=== PATIENT | female | born 1980 | race Caucasian/White ===

== ENCOUNTER → 2018-03-14 07:15 | Outpatient (CLI) | payer OTHER, SELFPAY ==
[2018-03-17 12:56] LABS: HPV Reflexed? NOT INDICATED
== END ==
PROVIDERS: Visit Provider Obstetrics & Gynecology
DX: Z12.4 Encounter for screening for malignant neoplasm of cervix (principal)
CPT/HCPCS: 88175; G0145

== ENCOUNTER → 2020-08-29 12:30 | Outpatient (CLI) | payer OTHER, SELFPAY ==
--- NOTE | 2020-08-29 11:45 | EMB_PTH ---
PATIENT: VARINDER FREEMAN LOC: [facility] U#:[id number] AGE/SX: 45/F ROOM: RE08/29/[address]: Dr. Jazlyn Shahid DO : 1980 BED: DIS: SPEC #: [id number] RECD: 08/29/20 15:41 STATUS: FOSTER CHAITANYA #: [id number] RENARD: 08/29/20 11:[address]: Jazlyn Shahid DEPT: SURGICAL PATHOLOGY RECD BY: Reece Rojas ENTERED: 08/30/20 07:31 SP TYPE: ENDOM BX/C RYAN DR: Dr. Randolph Phillips MD Tissues: Endometrium, NOS Procedures: Surgery Specimen Level IV HEADER OPERATION: Endometrial biopsy PRE-OP DIAGNOSIS: Heavy menses, thickened endometrium TISSUE SUBMITTED: Endometrial biopsy MICROSCOPIC DIAGNOSIS Endometrium, biopsy: Secretory endometrium. AM:tavia 09/02/20 MICROSCOPIC DESCRIPTION Slides are reviewed. GROSS DESCRIPTION Received in fixative is one container labeled with the patient's name and designated EMB. The specimen consists of multiple irregular fragments of dumont-pink soft tissue that in aggregate measure 2.5 x 1 x 0.1 cm. The specimen is totally submitted in one cassette. / SJ:tavia 08/30/20 TC:5 CPT: 12877
--- NOTE | 2020-08-29 12:33 | BI_ITS ---
MAMMOGRAPHY - BILATERAL SCREENING REASON FOR EXAM: Female, 40 years old. Routine annual screening examination. PERTINENT HISTORY: Non-contributory. TECHNIQUE: Digital bilateral breast aruna (3D mammographic acquisition) in the CC and MLO projections. 2-D mediolateral oblique (MLO) and craniocaudad (CC) views of both breasts were obtained. CAD: Full Field Digital Mammography with Computer Added Detection was performed. COMPARISON: None. Baseline examination. FINDINGS: Breast Composition: There are scattered areas of fibroglandular density. There are no dominant masses or suspicious calcifications. The left breast is smaller than the right breast. Benign appearing bilateral axillary lymph nodes. No other significant abnormalities are identified. BI/SCREEN MAMM (CAD) W/ARUNA BILAT IMPRESSION: Negative screening mammogram. Yearly followup mammogram recommended. (A) ASSESSMENT CATEGORY: BIRADS Category 2: Benign. A letter regarding these results will be sent to the patient by the facility within 30 days. Approximately 10% of breast cancers are not detected by mammography. A normal mammogram should not delay biopsy of a clinically suspicious abnormality. [id number] Electronically Signed: Colby Mederos, at 12:33 EDT , Service support ,
== END ==
PROVIDERS: PCP Family Medicine; Referring Provider Student in an Organized Health Care Education/Training Program; Visit Provider Student in an Organized Health Care Education/Training Program
DX: Z12.31 Encounter for screening mammogram for malignant neoplasm of breast (principal); N92.0 Excessive and frequent menstruation with regular cycle; R93.89 Abnormal findings on diagnostic imaging of other specified body structures
CPT/HCPCS: 77063; 77067; 88305

== ENCOUNTER 2020-10-24 10:25 | Day surgery (SDC) | payer OTHER, SELFPAY ==
[2020-10-21 12:19] LABS: Hematocrit 39.3 % (37-47); Hemoglobin 13.2 g/dL (12.0-15.0); Mean Corp Hgb Conc 33.6 g/dL (32-36); Mean Corpuscular Hgb 30.2 pg (27.0-32.0); Mean Corpuscular Volume 89.9 fL (81-99); Mean Platelet Vol. 10.1 fl (6.2-12.0); Platelet Count 302 K/mm3 (150-450); RBC Distribution Width CV 12.6 % (11.6-14.6); RBC Distribution Width SD 41.5 fl (35.1-43.9); Red Blood Count 4.37 M/mm3 (4.2-5.4); White Blood Count 9.4 K/mm3 (4.4-11.0)
--- NOTE | 2020-10-22 15:59 | EKG12_ITS ---
Test Reason : PRE OP Blood Pressure : / mmHG Vent. Rate : 082 BPM Atrial Rate : 082 BPM P-R Int : 128 ms QRS Dur : 090 ms QT Int : 374 ms P-R-T Axes : 043 047 038 degrees QTc Int : 436 ms Normal sinus rhythm Normal ECG Confirmed by HEMANTH LR, ALISON ([id number]), book editor ERNESTO PHIPPS ([id number]) on 10/23/2020 9:44:32 AM Referred By: Jazlyn Shahid Confirmed By:ALISON SAXENA MD
--- NOTE | 2020-10-23 17:22 | HP.PCM_ITS ---
History and Physical Date of Admission: 10/24/20 Maria Fernanda Cortez, a 40 year old female 2 0 0 0 2, presents for Hystero scopy, D, Ablation on October 24, 2020 at 12:00. Monthly menses are heavy first few days with associated pain and cramping. Pamphlet given for mammogram and order faxed to [facility]. Heavy, very crampy/p ainful, regular periods occurring q 3 wks; associated larger than egg sized clots. LMP 08/10/20. This period bled thru pads and in a puddle in her bed. On no ocp. had a vasectomy. Patient had an ultrasound and endometrial biopsy which was benign. MEDICATIONS HISTORY: none ALLERGIES: NKA and No Known Drug Allergies MEDICAL HISTORY: Reports irregular heart rhythm after being exposed to red dyes and caffeine. Has not happened in a while. SOCIAL HISTORY: Alcohol Use - drinks occasionally Smoking - denies smoking FAMILY HISTORY: Paternal history of DM II. Mother: Hypertension. Paternal Grandmother: Lung cancer. MENSTRUAL HISTORY: LMP Known?- DefiniteAmount/Duration - 6-7 DAYS, Regularity - Regular, Frequency - monthly days, LMP - 10/02/20, Age Onset Menarche - 14 PAST PREGNANCIES: Total Pregnancies - 2; Full Term Pregnancies - 2; Premature - 0; Abortions, Induced - 0; Abortions, Spontaneous - 0; Ectopics - 0; Multiple Births - 0; Living Children - 2 SURGICAL HISTORY: 1. 04/23/2015 dermatological ; Dr Anderson - 2. wisdom teeth 05-21-08 ; - Review of Systems: GENERAL - Denies fever, or chills SKIN - Denies skin changes EYES - Denies visual changes EARS - Denies difficulty hearing NOSE - Denies nasal congestion or bleeding MOUTH - Denies sore throat or difficulty swallowing NECK - Denies pain or swelling RESPIRATORY - Denies shortness of breath or wheezing CARDIOVASCULAR - Denies palpitations or chest pain GASTROINTESTINAL - Denies nausea, vomiting, diarrhea, constipation GENITOURINARY - heavy periods MUSCULOSKELETAL - Denies joint or muscle pain NEUROLOGICAL - Denies localized numbness or weakness PSYCHIATRIC - Denies depression or anxiety ENDOCRINE - Denies heat or cold intolerance, weight loss or gain HEMATO-IMMUNOLOGIC - Denies excesive bleeding with cuts PHYSICAL EXAM BP- 156/100 Sitting, Right arm, regular cuff Weight- 198.81088 lbs Height- 66.5 inch BMI:31.55 CONSTITUTIONAL - NAD, well nourished, and well developed SKIN - No rash, lesions, or ulcers HEENT - Normocephalic, PERRLA, EOMI NECK - No nodes, no nuchal rigidity and thyroid normal size and texture LYMPH NODES - Palpation of lymph nodes in neck and groins within normal limits LUNGS - CTA x2 without wheezes, crackles or rales CARDIAC - Regular rate and rhythm without rubs, murmurs, or gallops ABDOMEN - Without hepatosplenomegaly, distention, masses, rebound, or guarding; normal bowel sounds; no hernias EXTREMITIES - No edema or calf tenderness NEUROLOGICAL - Cranial nerves II-XII grossly intact PSYCHIATRIC - A and O to time, place, person, mood and affect External Genitial Vagina - non-tender without lesions Urethra/Urethral Meatus - non-tender Bladder - non-tender Vagina - vaginal mcmillan are pink and moist without loss of rugae and no evidence of atropy Cervix - without cervical motion tenderness and has normal size and features without evident lesions Uterus - 5-6 cm in size, mobile and nontender Adnexa - clear without massess or tenderness ASSESSMENT/PLAN: 1. Excessive And Frequent Menstruation With Regular Cycle Heavy menses, interfering with daily life. US wnl, EMB benign Hx of irregular HR and syncope with ingestion of red dye and caffiene, last episode a while ago. Never saw cardio. Recommend this in future. HR RRR today. Discussed options for management. Pt would like ablation. Discussed R/B/A of ablation. Her has had a vasectomy. Will plan for surgical management.
[2020-10-24] VITALS (9 sets, daily range): BP systolic 100–134; BP diastolic 71–79; PULSE 56–80; RESP 14–18; TEMP 36.9–37.4; O2SAT 96–100; BMI 31.8
[2020-10-24 11:05] LABS: Internal QC Validated? YES +Cl - CLEAR BKGD; Pregnancy, Urine Negative Negative
[2020-10-24] MEDS: Lactated Ringers 1,000 ML 100 ML IV (11:19)
--- NOTE | 2020-10-24 12:00 | EMB_PTH ---
PATIENT: VARINDER FREEMAN LOC: [facility] [place] U#:[id number] AGE/SX: 40/F ROOM: RE10/24/[address]: Dr. Jazlyn Shahid DO : 1980 BED: DIS: 10/24/2020 SPEC #: [id number] RECD: 10/24/20 13:57 STATUS: FOSTER CHAITANYA #: [id number] RENARD: 10/24/20 12:[address]: Jazlyn Shahid DEPT: SURGICAL PATHOLOGY RECD BY: Gwen Shoemaker ENTERED: 10/25/20 07:40 SP TYPE: ENDOM BX/C RYAN DR: Dr. Randolph Phillips MD Tissues: Endometrium, NOS Procedures: Surgery Specimen Level IV HEADER OPERATION: Hysteroscopy, D & C Damaris PRE-OP DIAGNOSIS: Excessive and frequent menstruation TISSUE SUBMITTED: Endometrial curettings MICROSCOPIC DIAGNOSIS Endometrium, curettings: Secretory endometrium. AM:tavia 12/7/20 MICROSCOPIC DESCRIPTION Slides are reviewed. GROSS DESCRIPTION Received in fixative is one container labeled with the patient's name and designated endometrial curettings. The specimen consists of multiple irregular fragments of light dumont soft tissue that in aggregate measure 2 x 2 x 0.2 cm. The specimen is totally submitted in one cassette. / AM:tavia 10/25/20 TC:5 CPT: 73126
--- NOTE | 2020-10-24 12:14 | DCINST_ITS ---
Discharge Activity: Return to Normal Activity May resume sexual activity in: 4 weeks, 6 weeks Weight Bearing Status: Weight bearing as tolerated Call your doctor if your incision/area has: Continuous Slow Oozing Call your doctor if you observe: Fever of 101 or Higher, Inability to have a bowel movement, Using more than one pad per hour Allergies/Adverse Reactions: Allergies No Known Allergies Allergy (Verified 10/24/20 10:52) Medications to take at Discharge Albuterol IH (ProAir) [Proair Hfa (SP)Vent Pts] 1 - 2 puff INHALATION Q4H PRN PRN 10/16/20 L.acidoph,Paracasei, B.lactis [Probiotic] 1 ea PO DAILY 10/16/20 Multivitamin [Multiple Vitamins] 1 ea PO DAILY 10/16/20 Vitamin D3/Vitamin K2 (Mk4) [K2 Plus D3 Tablet] 1 ea PO QHS 10/16/20 Primary Care Physician: Randolph Phillips MD [Primary Care Provider] - Test Results: Test results from this visit will be discussed in further detail at your follow- up appointment, if applicable. Please Follow Up With: Jazlyn Shahid DO When: 2 weeks
--- NOTE | 2020-10-24 12:15 | PCM.OPRPT ---
Report of Operation Date of Procedure: 10/24/20 Pre-Operative Diagnosis: Menorrhagia Post-Operative Diagnosis: Menorrhagia Surgery/Procedure Performed:: Hysteroscopy, dilation and curettage, ablation Description of Surgical Findings:: Normal-appearing external genitalia. Minimal uterine descensus. Uterine cavity sounded to 10 cm, cervical length 5 cm. Normal-appearing endometrial cavity, bilateral tubal ostia noted. Type of Anesthesia:: Local Specimen's removed: Endometrial curettings Estimated Blood Loss (mL): 5cc Fluids Replaced: 800cc Description of Procedure: Patient taken to the operating room, MAC anesthesia initiated. Patient placed in the dorsal lithotomy position and prepped and draped in the usual sterile fashion. Bladder drained approximately 300 cc of clear urine. Weighted speculum placed in the posterior vagina and a Peter retractor utilized to visualize the cervix, anterior lip of the cervix grasped with a single-tooth tenaculum. Cervix sequentially dilated, uterus sounded to 10 cm. Hysteroscope utilized to visualize the entire endometrial cavity which was noted to be within normal limits with some thickened lining, bilateral tubal ostia noted. Cervical length found to be 5 cm. Damaris device open. Endometrial curettings completed in a 360 degree manner. Device set to cavity left 5 cm, inserted through the cervix, passed to safety checks. Ablation completed. Device removed. Endometrial cavity inspected again noting blanching appropriately. Hysteroscope removed. Single-tooth tenaculum removed, hemostatic sites. At the end of the procedure all needle, lap, sponge counts were correct x3.
[2020-10-24] MEDS: oxyCODONE 5 MG Tablet PO (13:47)
== END 2020-10-24 14:34 | disposition home or self-care (01) ==
LOC: SDC 10:30 → AC 10:31
PROVIDERS: Anesthesiology; PCP Family Medicine; Referring Provider Student in an Organized Health Care Education/Training Program; Visit Provider Student in an Organized Health Care Education/Training Program
PROC: 0U5B8ZZ Destruction of Endometrium, Via Natural or Artificial Opening Endoscopic (ICD-10-PCS; CPT 58558; principal; 2020-10-24 11:45)
DX: N92.0 Excessive and frequent menstruation with regular cycle (principal); Z20.828 Contact with and (suspected) exposure to other viral communicable diseases
CPT/HCPCS: 00952; 58563; 36415; 81025; 85027; 86850; 86900; 86901; 87426; 88305; 93005; C9803; J7120; J2405

== ENCOUNTER 2022-02-02 16:45 | Outpatient (CLI) | payer OTHER, SELFPAY ==
[2022-02-08 16:32] LABS: HPV APTIMA, High Risk Negative (Negative)
== END 2022-02-02 23:59 | disposition home or self-care (01) ==
PROVIDERS: PCP Family Medicine; Visit Provider Student in an Organized Health Care Education/Training Program
DX: Z12.4 Encounter for screening for malignant neoplasm of cervix (principal)
CPT/HCPCS: 87624; 88175; G0145

== ENCOUNTER 2022-02-24 17:00 | Outpatient (CLI) | payer OTHER, SELFPAY ==
--- NOTE | 2022-02-24 16:37 | BI_ITS ---
MAMMOGRAPHY - BILATERAL SCREENING REASON FOR EXAM: Female, 41 years old. Routine annual screening examination. PERTINENT HISTORY: Non-contributory. TECHNIQUE: Digital bilateral breast aruna (3D mammographic acquisition) in the CC and MLO projections. 2-D mediolateral oblique (MLO) and craniocaudad (CC) views of both breasts were obtained. CAD: Full Field Digital Mammography with Computer Added Detection was performed. COMPARISON: Comparison is made with prior study 08/29/2020. FINDINGS: Breast Composition: There are scattered areas of fibroglandular density. There are no dominant masses or suspicious calcifications. Once again, the left breast is smaller than the right. Small benign-appearing bilateral axillary lymph nodes. No other significant abnormalities are identified. There has been no significant change since the prior study. BI/SCRN MAMM (CAD)W/ARUNA BILAT IMPRESSION: Stable bilateral screening mammogram. Yearly follow-up mammogram recommended. (A) ASSESSMENT CATEGORY: BIRADS Category 2: Benign. A letter regarding these results will be sent to the patient by the facility within 30 days. Approximately 10% of breast cancers are not detected by mammography. A normal mammogram should not delay biopsy of a clinically suspicious abnormality. [id number] Electronically Signed: Colby Mederos MD at 8:24 EDT ,
== END 2022-02-24 23:59 | disposition home or self-care (01) ==
PROVIDERS: PCP Nurse Practitioner Family; Referring Provider Student in an Organized Health Care Education/Training Program; Visit Provider Student in an Organized Health Care Education/Training Program
DX: Z12.31 Encounter for screening mammogram for malignant neoplasm of breast (principal)
CPT/HCPCS: 77063; 77067

== ENCOUNTER → 2023-02-25 | Outpatient (CLI) | payer OTHER, SELFPAY ==
--- NOTE | 2023-02-25 13:23 | BI_ITS ---
MAMMOGRAPHY - BILATERAL SCREENING REASON FOR EXAM: Female, 42 years old. Routine annual screening examination. PERTINENT HISTORY: Non-contributory. TECHNIQUE: Digital bilateral breast aruna (3D mammographic acquisition) in the CC and MLO projections. 2-D mediolateral oblique (MLO) and craniocaudad (CC) views of both breasts were obtained. CAD: Full Field Digital Mammography with Computer Added Detection was performed. COMPARISON: Comparison is made with prior study dated February 24, 2022 and August 29, 2020. FINDINGS: Breast Composition: There are scattered areas of fibroglandular density. There are no dominant masses or suspicious calcifications. Once again, the left breast is smaller than the right. Stable small benign-appearing bilateral axillary lymph nodes. No other significant abnormalities are identified. There has been no significant change since the prior study. BI/SCRN MAMM (CAD)W/ARUNA BILAT IMPRESSION: Stable bilateral screening mammogram. Yearly follow-up mammogram recommended. (A) ASSESSMENT CATEGORY: BIRADS Category 2: Benign. A letter regarding these results will be sent to the patient by the facility within 30 days. Approximately 10% of breast cancers are not detected by mammography. A normal mammogram should not delay biopsy of a clinically suspicious abnormality. [id number] Electronically Signed: Colby Mederos MD at 8:24 EDT ,
== END | disposition home or self-care (01) ==
LOC: OPBI 13:21
PROVIDERS: PCP Nurse Practitioner Family; Visit Provider Student in an Organized Health Care Education/Training Program
DX: Z12.31 Encounter for screening mammogram for malignant neoplasm of breast (principal)
CPT/HCPCS: 77063; 77067